=== PATIENT | male | born 1980 | race Caucasian/White ===

== ENCOUNTER 2016-07-12 11:07 | Emergency (ER) | payer OTHER ==
--- NOTE | ~2016-07-12 | CT71 ---
[facility] A Service of [facility] RADIOLOGY TEXT RESULTS PATIENT: JULIANA DANIELSON LOCATION: SED : 76 UNIT #: [id number] AGE: [address]: Maynor Serrano MD SEX: M ORDER DR: [id number] [place] [id number] MR#: [id number] Acc #: [id number] NAME: JULIANA DANIELSON : 1980 SEX: M STUDY DATE/TIME: 07/12/2016 12:20 UNIT: SED ROOM: STUDY DESCRIPTION: CT Head Wo Contrast Attending Physician: Maynor Serrano M.D. Referring Physician: Maynor Serrano M.D. Ordering Physician: Maynor Serrano M.D. Primary Care Physician: Derrek Sharpe M.D. MEDICAL IMAGING REPORT This report is preliminary unless electronic signature is present. EXAM CT of the head, without contrast. HISTORY Head pressure for 4 months. Swelling on the right side of the head and neck. Patient has been treated for sinusitis. TECHNIQUE Axial CT images were obtained from the vertex of the skull through the skull base. No intravenous contrast was administered. FINDINGS No acute intracranial hemorrhage is identified. The brain parenchyma is normal in attenuation with no focal areas of deep tissue attenuation seen. There is no midline shift or mass effect. The ventricles are normal in size. The patient does have some mild mucosal thickening seen within the ethmoid and right sphenoid sinuses. There is a soft tissue nodule identified within the right parietal scalp measuring up to about 0.5 x 1.1 cm. Its exact significance is uncertain. Potentially, it could reflect a sebaceous cyst. It certainly does not appear to be particularly aggressive. No other focal soft tissue abnormalities are seen, and there are no aggressive osseous abnormalities. IMPRESSION 1. No acute intracranial process is identified. Specifically, there is no evidence of acute hemorrhage, mass lesion, or acute infarct. 2. Soft tissue nodule seen within the right parietal scalp, measuring about 1.1 x 0.5 cm. Clinical significance is uncertain. It certainly could reflect a benign lesion such as a sebaceous cyst. It certainly does not appear to be particularly aggressive. [facility] A Service of [facility] RADIOLOGY TEXT RESULTS PATIENT: JULIANA DANIELSON LOCATION: SED : 76 UNIT #: [id number] AGE: [address]: Maynor Serrano MD SEX: M ORDER DR: 3. Mild sinus inflammatory changes identified within the ethmoid and sphenoid sinuses. Dictated by... Adriana Go M.D. THIS IS AN ELECTRONICALLY VERIFIED REPORT Adriana Go M.D. at 07/12/2016 4:46 PM SHER/israel TD: 07/12/2016 15:40 JOB #: [id number] MEDICAL IMAGING REPORT Page 1 of 1
[~2016-07-12 11:07] MED LIST: ALBUTEROL20 ml INH; AMOXICILLIN; CLINDAMYCIN HC300 MG PO; GRALISE1 EACH; HYDROCODON-ACE1 EAC7 PO; IBUPROFEN800 MG; LORTAB 10-5001 EACH PO; NO MEDICATIONS; TESSALON200 MG PO; TYLENOL #3 PO; ZITHROMAX PO; ZYRTEC10 M2 PO
== END 2016-07-12 14:27 | disposition home or self-care (01) ==
LOC: SED 11:07
DX: L72.9 Follicular cyst of the skin and subcutaneous tissue, unspecified (principal); R51 Headache; M54.9 Dorsalgia, unspecified; G89.29 Other chronic pain; F17.210 Nicotine dependence, cigarettes, uncomplicated
CPT/HCPCS: 70450; 99284